=== PATIENT | female | born 1985 | race African-American/Black ===

== ENCOUNTER 2017-12-24 17:42 | Emergency (ER) | payer OTHER ==
[~2017-12-24 17:42] MED LIST: AMOXICILLIN875 M1 PO; ANUSOL HC-HEMOR1 SUP RC; AUGMENTIN 875 M1 TAB PO; FIORICET 50-301 EACH PO; HYDROCODONE/ACE1 TA1 PO; LIDOCAINE VISC100 M2 PO; ZOFRAN ODT4 M1 SL
[2017-12-24 18:05] VITALS: BP 128/70
[2017-12-24] MEDS ORDERED: CYCLOBENZAPRINE5 M2 PO (18:12)
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
== END 2017-12-24 18:27 ==
LOC: ERH 17:42
DX: S29.012A Strain of muscle and tendon of back wall of thorax, initial encounter (principal); V49.40XA Driver injured in collision with unspecified motor vehicles in traffic accident, initial encounter; Y92.9 Unspecified place or not applicable

== ENCOUNTER 2018-04-04 21:17 | Emergency (ER) | payer OTHER ==
[~2018-04-04] VITALS: Ht 165.1 cm; Wt 47.6 kg
[~2018-04-04 21:17] MED LIST changes: +CYCLOBENZAPRINE5 M2 PO
[2018-04-04 22:13] LABS: ABSOLUTE BASOPHIL COUNT 0 /CUMM (0.0-0.2); ABSOLUTE EOSINOPHIL COUNT 0.2 /CUMM (0.0-0.7); ABSOLUTE GRANULOCYTE CT 3.4 /CUMM (1.4-6.5); ABSOLUTE LYMPH COUNT 0.6 /CUMM (1.2-3.4); BASOPHIL % 0.6 % (0.0-2.0); GRANULOCYTE % 64.4 % (42.2-75.2); HEMATOCRIT 36.6 % (37-47); MEAN CORPUSCULAR HGB 31.1 PG (27.0-31.0); MEAN CORPUSCULAR HGB CONC 32.7 G/DL (33.0-37.0); MEAN CORPUSCULAR VOLUME 95.2 FL (81.0-99.0); PLATELET COUNT 198 /CUMM (130-400); RBC DISTRIBUTION WIDTH 19.9 % (11.5-14.5); RED BLOOD CELL CT 3.84 /CUMM (4.20-5.40); WHITE BLOOD CELL COUNT 5.3 /CUMM (4.8-10.8)
--- NOTE | 2018-04-04 23:15 | RADIOLOGY REPORT ---
EXAMINATION: XR CHEST CLINICAL INFORMATION: Productive cough. Fever. COMPARISON: None TECHNIQUE: 2 views of the chest were obtained. FINDINGS: No significant abnormality is noted involving the heart, lungs, mediastinum, bony thorax or soft tissues. IMPRESSION: Unremarkable examination.
--- NOTE | 2018-04-05 01:24 | ED GENERAL ADULT ---
History of Present Illness General Chief Complaint: General Adult Stated Complaint: "UM I HAVE A FEVER, MY WHOLE BODY HURTS" Source: patient Exam Limitations: no limitations Vital Signs & Intake/Output Vital Signs & Intake/Output Vital Signs Date Time Temp Pulse Resp B/P B/P Pulse O2 O2 Flow FiO2 Mean Ox Delivery Rate 04/05 0409 97.9 78 18 100/65 100 Room Air 04/05 0333 98.8 04/05 0248 100.2 04/05 0238 100.2 88 18 109/60 99 Room Air 04/05 0114 100.8 90 20 99 Room Air 04/04 2141 101.8 106 18 112/78 98 Room Air ED Intake and Output 04/05 0000 04/04 1200 Intake Total Output Total Balance Patient 105 lb Weight Allergies Coded Allergies: NO KNOWN ALLERGIES (06/14/13) Reconcile Medications Amoxicillin 875 MG TABLET 1 TAB PO BID sinusitis Amoxicillin/Potassium Clav (Augmentin 875-125 Tablet) 875 MG-125 MG TABLET 1 TAB PO BID bronchitis AMOXICILLIN/POTASSIUM CLAV (Augmentin 875-125 Tablet) 875 MG/125 MG TAB 1 TAB PO BID PHARYNGITIS Anusol Hc (Anusol Hc-Hemorrhoidal Hc Supp) 25 MG SUPP.RECT 1 SUP RC BID HEMORRHOID Anusol Hc (Anusol Hc-Hemorrhoidal Hc Supp) 25 MG SUPP.RECT 1 SUP RC BID HEMORRHOID Butalb/Acetaminophen/Caffeine (Fioricet 50-300-40 MG Capsule) 50 MG-300 MG-40 MG CAPSULE 1-2 TAB PO Q6P PRN headache Cyclobenzaprine HCl 5 MG TABLET 1 TAB PO TIDPRN PRN pain Ibuprofen 600 MG TABLET 1 TAB PO TID PRN pain,body aches,fever with food Lidocaine Viscous (Lidocaine Viscous 100ML Bot) 2 % SOLUTION 5 ML PO TID HEMORRHOID Ondansetron (Zofran Odt) 4 MG TAB.RAPDIS 1 TAB SL TID PRN nausea Triage Note: 32F WITH SUBJECTIVE FEVERS, C/O BACK AND ABD PAIN. DIAGNOSED WITH A KIDNEY STONE AT LAST WEEK. HAS TAKEN VICODIN AND IBUPROFEN WITHOUT ANY RELIEF. ENDORSES GENERAL MALAISE AND BODY ACHES. DENIES CURRENT HEMATURIA BUT DOES HAVE SOME RESIDUAL DISCOMFORT AFTER URINATING. DENIES N/V. +PRODUCTIVE GREEN COUGH. UNSURE IF SHE IS , LAST MENSES TWO MONTHS AGO. FEBRILE IN TRIAGE. Triage Nurses Notes Reviewed? yes Onset: Gradual Duration: day(s): Timing: recent history Injury Environment: home Severity: moderate Modifying Factors: Improves With: rest. Associated Symptoms: BODY ACHES : Yes Patient currently breastfeeds: No HPI: 32 YO WOMAN presents with 2-3 days of body aches, muscle spasm, back pain, headache, cough w / sputum. She was treated for a kidney stone last week, was given vicodin. She notes fevers to 102 at home, last took ibuprofen 430pm yesterday. She notes nausea, diffuse abdominal discomfort without dysuria, polyuria. She is otherwise well. Past History Travel History Traveled to [place] past 21 day No Medical History Any Pertinent Medical History? see below for history Neurological: NONE EENT: NONE Cardiovascular: NONE Respiratory: NONE Gastrointestinal: NONE Hepatic: NONE Renal: NONE Musculoskeletal: R FEMUR FX Psychiatric: NONE Endocrine: NONE Blood Disorders: NONE Cancer(s): NONE WIRELESS INTERNET INSTALLER/Reproductive: NONE Surgical History Surgical History: non-contributory Psychosocial History What is your primary language Iraqi Tobacco Use: Never used Family History Hx Contributory? No Review of Systems Review of Systems Constitutional: Reports: no symptoms. EENTM: Reports: no symptoms. Respiratory: Reports: no symptoms. Cardiovascular: Reports: no symptoms. GI: Reports: no symptoms. Genitourinary: Reports: no symptoms. Musculoskeletal: Reports: no symptoms. Skin: Reports: no symptoms. Neurological/Psychological: Reports: no symptoms. Hematologic/Endocrine: Reports: no symptoms. Immunologic/Allergic: Reports: no symptoms. All Other Systems: Reviewed and Negative Physical Exam Physical Exam General Appearance: well developed/nourished, mild distress Head: atraumatic, normal appearance Eyes: Bilateral: normal appearance, PERRL, EOMI. Ears, Nose, Throat: normal pharynx, normal ENT inspection, slightly dry mucosa Neck: normal inspection, supple, full range of motion Respiratory: chest non-tender, no respiratory distress, quiet respiration, lungs clear, mild rhonchi bilaterally Cardiovascular: regular rate/rhythm Gastrointestinal: normal bowel sounds, soft, mid epigastric tenderness and suprapubic tenderness, mild rlq tenderness to palpation Back: normal inspection Extremities: normal inspection, normal capillary refill, normal range of motion, no edema Neurologic/Psych: no motor/sensory deficits, awake, alert, oriented x 3 Skin: intact, normal color, warm/dry Core Measures ACS in differential dx? No CVA/TIA Diagnosis: No Sepsis Present: No Sepsis Focused Exam Completed? No Progress Differential Diagnoses I considered the following diagnoses in my evaluation of the patient: viral syndrome gastroenteritis vs other. Plan of Care: Orders Procedure Date/time Status Add-on Test (ER Only) 04/05 214 Active MONOSPOT TEST 04/04 2204 Complete URINE 04/04 2141 Complete URINALYSIS 04/04 2141 Complete COMPREHENSIVE METABOLIC PANEL 04/04 2141 Complete CBC WITHOUT DIFFERENTIAL 04/04 2141 Complete Laboratory Tests 04/05/18 0132: Infectious Gilmer Titer Cancelled 04/04/182249: Urine Color YEL, Urine Clarity CLEAR, Urine pH 7.0, Ur Specific Lohn 1.020, Urine Protein NEG, Urine Ketones NEG, Urine Nitrite NEG, Urine Bilirubin NEG, Urine Urobilinogen 2.0 H, Ur Leukocyte Esterase NEG, Ur Microscopic EXAM NOT REQUIRED, Urine Hemoglobin NEG, Urine Glucose NEG, Urine Test NEGATIVE 04/04/182203: Anion Gap 8, Estimated GFR > 60, BUN/Creatinine Ratio 14.0, Glucose 91, Calcium 8.8, Total Bilirubin 0.3, AST 48 H, ALT 42, Alkaline Phosphatase 61, Total Protein 6.6, Albumin 3.5, Globulin 3.1, Albumin/Globulin Ratio 1.1, CBC w Diff NO MAN DIFF REQ, RBC 3.84 L, MCV 95.2, MCH 31.1 H, MCHC 32.7 L, RDW 19.9 H, MPV 8.0, Gran % 64.4, Lymphocytes % 12.2 L, Monocytes % 18.8 H, Eosinophils % 4.0, Basophils % 0.6, Absolute Granulocytes 3.4, Absolute Lymphocytes 0.6 L, Absolute Monocytes 1.0 H, Absolute Eosinophils 0.2, Absolute Basophils 0, Infectious Gilmer Titer NEGATIVE Diagnostic Imaging: Viewed by Me: Radiology Read. Discussed w/RAD: Radiology Read. CXR Impression: PATIENT: SHASHANK ALLEN PRESENT AGE: 32 PATIENT ACCOUNT NO: [id number] : 86 LOCATION: [facility] ORDERING PHYSICIAN: Stiven Vargas DO (TBS) SERVICE DATE: 04/04/18-2140 EXAM TYPE: RAD - XRY- CHEST XRAY, TWO VIEWS EXAMINATION: XR CHEST CLINICAL INFORMATION: Productive cough. Fever. COMPARISON: None TECHNIQUE: 2 views of the chest were obtained. FINDINGS: No significant abnormality is noted involving the heart, lungs, mediastinum, bony thorax or soft tissues. IMPRESSION: Unremarkable examination. DICTATED BY: Evan Tavera MD DATE/TIME DICTATED:04/04/182310 MIXING AND DISPENSING SUPERVISOR :RENU DATE/TIME TRANSCRIBED:04/04/182310 CONFIDENTIAL, DO NOT COPY WITHOUT APPROPRIATE AUTHORIZATION. <Electronically signed in Other Vendor System> SIGNED BY: Evan Tavera MD 04/04/182314, PATIENT: SHASHANK ALLEN PRESENT AGE: 32 PATIENT ACCOUNT NO: [id number] : LOCATION: [facility] ORDERING PHYSICIAN: Osmar Dooley MD SERVICE DATE: 04/05/18 EXAM TYPE: CAT - CT ABD & PELVIS W/O IV CONTRAS EXAMINATION: CT ABDOMEN AND PELVIS WITHOUT CONTRAST CLINICAL INFORMATION: 32-year-old female patient with right lower quadrant and suprapubic pain. COMPARISON: CT of the abdomen and pelvis on 04/07/2011. TECHNIQUE: Multidetector volumetric imaging was performed from the superior aspect of the liver through the pubic symphysis. Sagittal and coronal reformatted images were obtained on the technologist's workstation. DLP: 270 mGy-cm FINDINGS: Car Construction Superintendent: There is increased burden of formed stool throughout the colon without impaction. The stool is concentrated particularly in the right abdomen. An intramedullary dunia is contained within the right femur. LUNG BASES: The visualized lung bases are unremarkable. LIVER, GALLBLADDER, AND BILIARY TREE: The liver is prominent in size. An ill-defined area of decreased attenuation is noted in the left lobe Couinaud segment 4. Also some fatty infiltration is noted in the region of the ligamentum teres. The gallbladder is unremarkable with no evidence of radiopaque gallstones, gallbladder wall thickening, or obvious pericholecystic inflammatory changes. PANCREAS: Unremarkable. SPLEEN: Unremarkable. ADRENAL GLANDS: Unremarkable. KIDNEYS AND URETERS: The kidneys are normal in size, shape, and attenuation. No hydronephrosis. A punctate nonobstructing calculus is located in the interpolar region of the left kidney. No perinephric stranding. BLADDER: Empty. GASTROINTESTINAL TRACT: The small and large bowel are unremarkable. The appendix is unremarkable. There is mild edema at the mesenteric root of undetermined significance. Series 2, image 46/93. Fluid is contained within the posterior pelvic recess this could be physiologic. ABDOMINAL WALL: No significant hernia is appreciated. LYMPH NODES: Normal. VASCULAR: Unremarkable. PELVIC VISCERA: The uterus is retroflexed. Small volume of free fluid in the pelvic recesses. OSSEOUS STRUCTURES: Unremarkable. IMPRESSION: 1. Focal fatty infiltration of the prominent liver. 2. Nonobstructing calculus left kidney. 3. Mild edema of the mesenteric root of undetermined significance. Small volume of free fluid in the pelvis. DICTATED BY: Travis Dwyer MD DATE/TIME DICTATED:04/05/18322 MIXING AND DISPENSING SUPERVISOR:RENU DATE/TIME TRANSCRIBED:04/05/18322 CONFIDENTIAL, DO NOT COPY WITHOUT APPROPRIATE AUTHORIZATION. <Electronically signed in Other Vendor System> SIGNED BY: Travis Dwyer MD 04/05/18 0340 Initial ED EKG: none Departure Departure Disposition: HOME OR SELF CARE Condition: Stable Clinical Impression Primary Impression: Bronchitis Secondary Impressions: Abdominal pain, Myalgia Referrals: Patient Has No Primary Care Dr (PCP/Family) Departure Forms: Customer Survey General Discharge Information Prescriptions: Current Visit Scripts Amoxicillin/Potassium Clav (Augmentin 875-125 Tablet) 1 TAB PO BID #20 TAB Ibuprofen 1 TAB PO TID PRN pain,body aches,fever #30 TAB with food Comments 04/05/18, 3:56am... pt feeling better, would like to go home... will rx her productive cough, c/w bronchitis, with augmentin and ibuprofen... pt safe for discharge. close follow up advised. Critical Care Note Critical Care Note Critical Care Time: non-applicable
--- NOTE | 2018-04-05 03:40 | CT SCAN REPORT ---
EXAMINATION: CT ABDOMEN AND PELVIS WITHOUT CONTRAST CLINICAL INFORMATION: 32-year-old female patient with right lower quadrant and suprapubic pain. COMPARISON: CT of the abdomen and pelvis on 04/07/2011. TECHNIQUE: Multidetector volumetric imaging was performed from the superior aspect of the liver through the pubic symphysis. Sagittal and coronal reformatted images were obtained on the technologist's workstation. DLP: 270 mGy-cm FINDINGS: Bathhouse Keeper: There is increased burden of formed stool throughout the colon without impaction. The stool is concentrated particularly in the right abdomen. An intramedullary dunia is contained within the right femur. LUNG BASES: The visualized lung bases are unremarkable. LIVER, GALLBLADDER, AND BILIARY TREE: The liver is prominent in size. An ill-defined area of decreased attenuation is noted in the left lobe Couinaud segment 4. Also some fatty infiltration is noted in the region of the ligamentum teres. The gallbladder is unremarkable with no evidence of radiopaque gallstones, gallbladder wall thickening, or obvious pericholecystic inflammatory changes. PANCREAS: Unremarkable. SPLEEN: Unremarkable. ADRENAL GLANDS: Unremarkable. KIDNEYS AND URETERS: The kidneys are normal in size, shape, and attenuation. No hydronephrosis. A punctate nonobstructing calculus is located in the interpolar region of the left kidney. No perinephric stranding. BLADDER: Empty. GASTROINTESTINAL TRACT: The small and large bowel are unremarkable. The appendix is unremarkable. There is mild edema at the mesenteric root of undetermined significance. Series 2, image 46/93. Fluid is contained within the posterior pelvic recess this could be physiologic. ABDOMINAL WALL: No significant hernia is appreciated. LYMPH NODES: Normal. VASCULAR: Unremarkable. PELVIC VISCERA: The uterus is retroflexed. Small volume of free fluid in the pelvic recesses. OSSEOUS STRUCTURES: Unremarkable. IMPRESSION: 1. Focal fatty infiltration of the prominent liver. 2. Nonobstructing calculus left kidney. 3. Mild edema of the mesenteric root of undetermined significance. Small volume of free fluid in the pelvis.
[2018-04-05] MEDS ORDERED: IBUPROFEN600 M1 PO (03:58)
[2018-04-05] MEDS ORDERED: AUGMENTIN 875-1 EACH PO (03:58)
[2018-04-05 04:09] VITALS: BP 100/65
== END 2018-04-05 04:12 ==
LOC: ERH 21:17
PROVIDERS: Emergency Medicine
DX: J40 Bronchitis, not specified as acute or chronic (principal); R10.9 Unspecified abdominal pain; M79.1 Myalgia; R51 Headache; M54.9 Dorsalgia, unspecified
CPT/HCPCS: 71046; 74176; 81003; 81025; 96361; 96365; 96375; J0131; J1885; J2405; J3490